=== PATIENT | female | born 1955 | race Caucasian/White ===

== ENCOUNTER → 2016-09-17 | Outpatient (CLI) | payer OTHER ==
[~2016-09-17] MED LIST: ALLO300T PO; ATOR10TA PO; BUTA-177 PO; CALC1TAB PEG; COLC0.6T37 PO; CYAN10008 PO; CYCL-259 PO; ESOM40CA PO; ESTR1.25 PO; FLAX10002 PO; GLIM4TAB2 PO; GLUC1TAB27 PO; HYDR-3241 PO; HYDR25TA6 PO; KRIL500C PO; LEVO175T2 PO; LIRA0.6P SC; LOPE1TAB4 PEG; LORA10TA75 PO; LOSA100T6 PO; METF500T27 PO; MULT-658 PO; NPH,100I4 SC; PANT40TA5 PO; POTA10TA5 PO; PRAM0.125 PO; SPIR25TA3 PO
[2016-09-17 11:36] LABS: BLOOD UREA NITROGEN 20 mg/dL (7-18)
[2016-09-17 11:39] LABS: ASPARTATE AMINO TRANSFERASE 33 U/L (15-37)
== END | disposition home or self-care (01) ==
LOC: STAR 10:12
PROVIDERS: ATTEND Neurological Surgery
DX: Z01.818 Encounter for other preprocedural examination (principal); M48.02 Spinal stenosis, cervical region; I10 Essential (primary) hypertension; E11.9 Type 2 diabetes mellitus without complications; M47.894 Other spondylosis, thoracic region; R79.89 Other specified abnormal findings of blood chemistry; Z85.850 Personal history of malignant neoplasm of thyroid
CPT/HCPCS: 36415; 71020; 80053; 81003; 83036; 85025; 85610; 85730; 93005

== ENCOUNTER 2016-09-28 05:41 | Day surgery (SDC) | payer OTHER ==
[~2016-09-28] VITALS: Ht 172.7 cm; Wt 111.3 kg
[2016-09-28 06:28] VITALS: BP 136/80
[2016-09-28] MEDS ORDERED: BUPIVACAINE/PF 0.5% ONE (07:09)
[2016-09-28] MEDS ORDERED: EPINEPHRINE 1 MG/ML, 1ML ONE (07:10)
[2016-09-28] MEDS ORDERED: THROMBIN 5,000 UNIT VIAL TP ONE (07:10)
[2016-09-28] MEDS ORDERED: BACITRACIN 50,000 UNIT ONE (07:10)
[2016-09-28] MEDS ORDERED: MIDAZOLAM 1 MG/ML, 2ML ONE (07:22)
[2016-09-28] MEDS ORDERED: FENTANYL PF 250 MCG/5ML ONE (07:22)
[2016-09-28] MEDS ORDERED: ONDANSETRON 2MG/ML, 2ML ONE (08:20)
[2016-09-28] MEDS ORDERED: PROPOFOL 10 MG/ML, 20ML ONE (08:20)
[2016-09-28] MEDS ORDERED: ROCURONIUM 10 MG/ML ONE (08:20)
[2016-09-28] MEDS ORDERED: DEXAMETHASONE 4 MG/ML, 1ML ONE (08:20)
[2016-09-28] MEDS ORDERED: CEFAZOLIN 1,000 MG ONE (08:20)
[2016-09-28] MEDS ORDERED: BUPIVACAINE/PF-EPI 0.5% 1:200K INFIL ONE (08:54)
[2016-09-28] MEDS ORDERED: OXYC-229 PO (08:59)
[2016-09-28] MEDS ORDERED: ONDANSETRON 2MG/ML, 2ML IVPush PRN (09:00)
[2016-09-28] MEDS ORDERED: MEPERIDINE/PF 25MG/0.5ML IVPush PRN (09:00)
[2016-09-28] MEDS ORDERED: HYDROmorphone 1 MG/ML, 1ML IV PRN (09:00)
[2016-09-28] MEDS ORDERED: MIDAZOLAM 1 MG/ML, 2ML IV PRN (09:00)
[2016-09-28] MEDS ORDERED: ACETAMINOPHEN 325 MG TABLET PO PRN (09:00)
[2016-09-28] MEDS ORDERED: PROMETHAZINE 25 MG/ML, 1ML IV PRN (09:00)
[2016-09-28] MEDS ORDERED: LABETALOL 5MG/ML, 20ML IV PRN (09:00)
[2016-09-28] MEDS ORDERED: hydrALAzine 20 MG/ML, 1ML IV PRN (09:00)
[2016-09-28] MEDS ORDERED: OXYcodone 5 MG/5 ML ORAL.SOL UDC PO PRN (09:00)
[2016-09-28] MEDS ORDERED: DIAZ5TAB PO (09:04)
[2016-09-28] MEDS ORDERED: FENTANYL PF 100 MCG/2ML ONE (09:43)
[2016-09-28] MEDS ORDERED: OXYcodone 5 MG/5 ML ORAL.SOL UDC ONE (09:44)
[2016-09-28] MEDS: FENTANYL PF 100 MCG/2ML IV PRN ×2 (10:25→10:38)
== END 2016-09-28 12:50 | disposition home or self-care (01) ==
LOC: OR 05:41 → 4NOR 05:50 → OR 12:50
PROVIDERS: ATTEND Neurological Surgery
DX: M54.12 Radiculopathy, cervical region (principal); M48.02 Spinal stenosis, cervical region; I10 Essential (primary) hypertension; E78.00 Pure hypercholesterolemia, unspecified; G43.909 Migraine, unspecified, not intractable, without status migrainosus; K21.9 Gastro-esophageal reflux disease without esophagitis; E11.9 Type 2 diabetes mellitus without complications; Z86.39 Personal history of other endocrine, nutritional and metabolic disease; Z88.1 Allergy status to other antibiotic agents; Z88.0 Allergy status to penicillin
CPT/HCPCS: 63045; 72040; C1713; J0171; J0690; J1100; J2250; J2405; J2704; J3010; J3490